=== PATIENT | male | born 1975 | race Caucasian/White ===

== ENCOUNTER 2016-11-26 14:13 | Emergency (ER) | payer BC, OTHER ==
[~2016-11-26] VITALS: Ht 177.8 cm; Wt 74.6 kg
[2016-11-26] MEDS ORDERED: SODIUM CHLORIDE 0.9% 1,000ML IVBOLUS ONE (15:00)
[2016-11-26 15:07] LABS: BLOOD UREA NITROGEN 12 mg/dL (7-18)
[2016-11-26 15:11] LABS: ASPARTATE AMINO TRANSFERASE 18 U/L (15-37)
[2016-11-26] MEDS ORDERED: OMNIPAQUE 350 MG/ML, 100ML BOTTLE ONE (16:00)
[2016-11-26 17:16] VITALS: BP 139/80
== END 2016-11-26 17:18 | disposition home or self-care (01) ==
LOC: ED 16:09
DX: A09 Infectious gastroenteritis and colitis, unspecified (principal); M10.9 Gout, unspecified
CPT/HCPCS: 36415; 74177; 80053; 85025; 96360; 96361; 99285; J7030; Q9967